=== PATIENT | male | born 1965 | race African-American/Black ===

== ENCOUNTER 2020-03-23 19:24 | Emergency (ER) | payer OTHER ==
[~2020-03-23] VITALS: Ht 182.9 cm; Wt 88.0 kg
[2020-03-23] MEDS ORDERED: HYDROCODONE/ACETAMINOPHEN 5/325MG TABLET PO ONE (20:15)
[2020-03-23] MEDS ORDERED: IBUPROFEN 600MG TABLET PO ONE (20:15)
[2020-03-24] MEDS ORDERED: MORPHINE SULFATE 2 MG/ML CPJ (NOT FOR IM USE) IV ONE (01:00)
[2020-03-24 03:00] VITALS: BP 167/113
== END 2020-03-24 03:46 | disposition short-term general hospital (02) ==
LOC: ER 19:24
DX: S76.111A Strain of right quadriceps muscle, fascia and tendon, initial encounter (principal); S82.001A Unspecified fracture of right patella, initial encounter for closed fracture; W01.0XXA Fall on same level from slipping, tripping and stumbling without subsequent striking against object, initial encounter; Y93.89 Activity, other specified; Y92.89 Other specified places as the place of occurrence of the external cause; Y99.8 Other external cause status
CPT/HCPCS: 73552; 73562; 73700; 99285; J2270; L1830; Z7610